=== PATIENT | male | born 1950 | race Caucasian/White ===

== ENCOUNTER 2016-06-04 13:25 | Emergency (ER) | payer OTHER ==
[~2016-06-04] VITALS: Ht 162.6 cm; Wt 70.5 kg
[2016-06-04 13:27] VITALS: BP 158/83; PULSE 90; RESP 14; TEMP 99; O2SAT 96
[2016-06-04] MEDS ORDERED: TETANUS/DIPHTHERIA TOXOID ADULT 0.5 ML VIAL IM ONE (15:30)
--- NOTE | 2016-06-04 15:42 | PD ---
HPI Chief Complaint: Laceration/Skin Injury Time Seen by Provider: 15:20 Travel History International Travel<30 days: No Contact w/Intl Traveler<30days: No Traveled to known affect area: No History of Present Illness HPI 65-year-old male presents to the emergency room for evaluation of a laceration to the top of the scalp that occurred just prior to arrival. Patient states his garage door was on and he walked into it. Denies loss of consciousness, nausea, vomiting, blurred vision, retrograde amnesia. He is not taking blood thinners. Patient presents requesting tetanus. PENDING SALE TO [facility] Past Medical History Medical History: Denies Significant Hx Diminished Hearing: No Tetanus Vaccination: > 5 Years Influenza Vaccination: No Past Surgical History Other Surgery: Yes (HEMMRHOIDECTOMY) Social History Alcohol Use: No Tobacco Use: No Substance Use: No Allergies-Medications (Allergen,Severity, Reaction): Coded Allergies: Darvon (Verified Allergy, Unknown, 06/04/16) vomit Review of Systems Except as stated in HPI: all other systems reviewed are Neg Physical Exam Narrative GENERAL: Well-nourished, well-developed male in no acute distress. Afebrile. Ambulatory. SKIN: Warm and dry. There is a 3 cm superficial, extremely well approximated laceration on the left, top scalp. Nontender. Not bleeding. HEAD: Normocephalic. EYES: No scleral icterus. No injection or drainage. NECK: Supple, trachea midline. No JVD or lymphadenopathy. NEUROLOGICAL: Awake and alert. Cranial nerves II through XII grossly intact. Motor and sensory grossly within normal limits. Five out of 5 muscle strength in all muscle groups. Normal speech. Data Data Last Documented VS Vital Signs Date Time Temp Pulse Resp B/P Pulse Ox O2 Delivery O2 Flow Rate FiO2 06/04/16 13:27 99.0 90 14 158/83 96 Room Air Orders Tetanus/Diphtheria Tox Adult (Tetanus/Di (06/04/16 15:30) MDM Medical Decision Making Medical Screen Exam Complete: Yes Emergency Medical Condition: Yes Medical Record Reviewed: Yes Differential Diagnosis Tetanus prophylaxis versus laceration versus head injury Narrative Course 65-year-old male presents to the emergency room for evaluation of laceration to the left top of his scalp that occurred just prior to arrival after he struck his head on a metal garage door. Patient denies loss of consciousness, nausea, vomiting, retrograde amnesia, and weak. Not taking blood thinners. [place] rule excludes need for imaging at this time. Physical exam reveals a 3 cm superficial, extremely well-approximated laceration on the left, top scalp. Nontender. Not bleeding. Wound does not require repair. It was cleansed with alcohol and then dressed with triple antibiotic ointment. Tetanus updated. Patient discharged with wound care instructions and told to follow-up return as needed. He understands and agrees to plan. Diagnosis Primary Impression: Scalp laceration Qualified Code: S01.01XA - Scalp laceration, initial encounter Referrals: Primary Care Physician Patient Instructions: General Instructions, Laceration (ED) Additional Instructions: Rest and drink plenty of fluids. Keep wound clean and dry. Apply triple antibiotic ointment twice daily. Take ibuprofen with food as directed, as needed for pain. Follow-up with a primary care physician. Return to the emergency room for worsening symptoms. Disposition: 01 DISCHARGE HOME Condition: Stable Roseanne Malave Jun 04, 2016 15:42
== END 2016-06-04 16:39 | disposition home or self-care (01) ==
LOC: NEPB 13:25
DX: S01.01XA Laceration without foreign body of scalp, initial encounter (principal); Z23 Encounter for immunization; W22.8XXA Striking against or struck by other objects, initial encounter
CPT/HCPCS: 90471; 90714